=== PATIENT | male | born 1995 | race Caucasian/White ===

== ENCOUNTER 2017-04-30 21:18 | Emergency (ER) | payer OTHER ==
[2017-04-30 22:00] LABS: URINE BILIRUBIN 1+ (NEGATIVE); URINE BLOOD 3+ (NEGATIVE); URINE GLUCOSE (UA) NORMAL (NORMAL); URINE KETONE TRACE (NEGATIVE); URINE LEUKOCYTE ESTERASE 1+ (NEGATIVE); URINE NITRATE NEGATIVE (NEGATIVE); URINE PROTEIN 2+ (NEGATIVE)
[2017-04-30 22:11] LABS: URINE RBC TNTC /[HPF] (0-2)
== END 2017-04-30 23:33 | disposition home or self-care (01) ==
LOC: ER 21:18
PROVIDERS: General Practice
DX: N20.2 Calculus of kidney with calculus of ureter (principal); R10.31 Right lower quadrant pain; R30.0 Dysuria; M25.572 Pain in left ankle and joints of left foot; S82.302A Unspecified fracture of lower end of left tibia, initial encounter for closed fracture; X50.0XXA Overexertion from strenuous movement or load, initial encounter; Z88.4 Allergy status to anesthetic agent
CPT/HCPCS: 73610; 74150; 81001; 99070; 99284-25